=== PATIENT | female | born 1980 | race African-American/Black ===

== ENCOUNTER 2024-04-18 12:00 | Inpatient (IN) | payer BC ==
[2024-04-23 13:35] LABS: Hematocrit 33.4 % (34.9-44.5); Hemoglobin 10.9 g/dL (12.0-15.5); Platelet Count 178 10x3/uL (150-450)
[2024-04-23 14:02] LABS: Syphilis Antibody Nonreactive (Nonreactive); Syphilis Antibody Index 0.03 S/CO (<1.00 Non-Reactive)
[2024-04-23 14:04] LABS: HBsAg Index 0.17 S/CO (0-0.99); Hep B Surf Ag Non-Reactive S/CO (NonReactive)
[2024-04-24 10:42] VITALS: BMI 30.7
[2024-04-24] MEDS ORDERED: Promethazine HCl 25 MG/ML VIAL IM PRN ×3 (10:59→14:47)
[2024-04-24] MEDS ORDERED: Acetaminophen 500 MG TAB PO PRN (10:59)
[2024-04-24] MEDS ORDERED: Ondansetron PF 4 MG/2 ML Vial IVP PRN ×4 (10:59→14:47)
[2024-04-24] MEDS ORDERED: hydrALAZINE 20 MG/ML VIAL SLOW IVP PRN ×2 (10:59→14:47)
[2024-04-24] MEDS ORDERED: Famotidine/PF 20 mg/2ml Vial SLOW IVP PRN (10:59)
[2024-04-24] MEDS ORDERED: Bicitra 30 ML UDCUP PO PRN (10:59)
[2024-04-24] MEDS ORDERED: Methylergonovine 0.2 MG/ML VIAL IM PRN (10:59)
[2024-04-24] MEDS ORDERED: Diphenoxylate HCl/Atropine Tablet PO PRN (10:59)
[2024-04-24] MEDS ORDERED: Carboprost 250 MCG/ML AMP IM PRN (10:59)
[2024-04-24] MEDS ORDERED: Misoprostol 200 MCG TAB PR PRN (10:59)
[2024-04-24] MEDS ORDERED: fentaNYL 50 mcg/mL 1 mL Vial SLOW IVP PRN ×2 (10:59→13:16)
[2024-04-24] MEDS ORDERED: Lactated Ringer's 1,000 ML IV SCH (11:00)
[2024-04-24] MEDS ORDERED: CEFAZOLIN 2 GM in Sodium Chloride 0.9% 100 ML IVPB SCH (11:00)
[2024-04-24] MEDS ORDERED: Oxytocin 30 units/NS 500 ML 500 ML IV SCH (11:00)
[2024-04-24] MEDS ORDERED: Meperidine HCl/PF 25 MG (1 mL) VIAL SLOW IVP PRN (13:16)
[2024-04-24] MEDS ORDERED: HYDROmorphone 0.5 MG/0.5 ML SYRINGE SLOW IVP PRN (13:16)
[2024-04-24] MEDS ORDERED: Moisturizing Cream (Eucerin) 113 GM JAR TOP PRN (13:16)
[2024-04-24] MEDS ORDERED: Naloxone HCl 0.4 mg/ml Vial IVP PRN ×2 (13:16)
[2024-04-24] MEDS ORDERED: Naloxone HCl 0.4 mg/ml Vial IV PRN (13:16)
[2024-04-24] MEDS ORDERED: diphenhydrAMINE 50 MG/ML VIAL IVP PRN (13:16)
[2024-04-24] MEDS ORDERED: Communication Order-Pharmacy FS SCH (13:30)
[2024-04-24] MEDS ORDERED: Ketorolac Tromethamine 30 MG (1 mL) VIAL IVP SCH (13:30)
[2024-04-24] MEDS ORDERED: Lanolin Ointment 7 GM TUBE TOP PRN (14:47)
[2024-04-24] MEDS ORDERED: Bisacodyl 10 MG SUPP PR PRN (14:47)
[2024-04-24] MEDS ORDERED: Boostrix 0.5 ML (Tdap) VIAL (>/=7 yrs of age) IM ONE (14:47)
[2024-04-24] MEDS ORDERED: diphenhydrAMINE 25 MG CAP PO PRN (14:47)
[2024-04-24] MEDS ORDERED: Acetaminophen 325 MG TAB PO PRN (14:47)
[2024-04-24] MEDS: Tranexamic Acid 1,000 MG/10 ML VIAL ONE (20:38)
[2024-04-24] MEDS: Methylergonovine 0.2 MG/ML VIAL ONE (20:38)
[2024-04-24] MEDS: Famotidine/PF 20 mg/2ml Vial ONE (20:38)
[2024-04-24] MEDS: Carboprost 250 MCG/ML AMP ONE (20:38)
[2024-04-24] MEDS: CEFAZOLIN 2 GM VIAL ONE (20:38)
[2024-04-24] MEDS: fentaNYL 50 mcg/mL 1 mL Vial ONE (20:39)
[2024-04-24] MEDS: Oxytocin 10 UNITS/ML VIAL ONE ×2 (20:39)
[2024-04-24] MEDS: Morphine PF 10 MG/10 ML VIAL ONE (20:39)
[2024-04-24] MEDS: Ondansetron PF 4 MG/2 ML Vial ONE (20:39)
[2024-04-24] MEDS: Ferrous Sulfate 325 MG TAB PO SCH (20:40)
[2024-04-24] MEDS: Docusate 100 MG CAP PO SCH (20:40)
[2024-04-25] MEDS ORDERED: HYDROcodone/Acetaminophen 5/325 mg Tablet PO PRN ×2 (01:30)
[2024-04-25 03:35] LABS: Hematocrit 32.6 % (34.9-44.5); Hemoglobin 11.1 g/dL (12.0-15.5); Mean Corpuscular Hemoglobin 32.6 pg (27.0-33.0); Mean Corpuscular Volume 95.6 fL (81.6-98.3); Mean Platelet Volume 10.6 fL (7.4-10.4); Platelet Count 159 10x3/uL (150-450); RBC Distribution Width 14.9 % (11.5-14.5); Red Blood Cell (RBC) Count 3.41 10x6/uL (3.90-5.03); White Blood Cell (WBC) Count 5.4 10x3/uL (3.5-10.5)
[2024-04-25] MEDS: Ketorolac Tromethamine 30 MG (1 mL) VIAL IVP PRN (03:41)
[2024-04-25] MEDS: Prenatal Vitamin 1 TAB PO SCH (08:59)
[2024-04-25] MEDS: Ibuprofen 800 MG TAB PO SCH (14:09)
[2024-04-25] MEDS: Simethicone Chewable 80 MG TAB PO PRN (21:08)
[2024-04-26 08:00] VITALS: TEMP 97.4
[2024-04-26 11:44] VITALS: BP 94/60
== END 2024-04-26 14:40 | disposition home or self-care (01) | DRG 788 ==
LOC: CSHLD 04-24 10:05 → CSHPED 04-24 15:45
PROVIDERS: ADMIT Student in an Organized Health Care Education/Training Program; ATTEND Student in an Organized Health Care Education/Training Program
PROC: 10D00Z1 Extraction of Products of Conception, Low, Open Approach (ICD-10-PCS; principal; 2024-04-24)
DX: O34.211 Maternal care for low transverse scar from previous cesarean delivery (principal); Z3A.37 37 weeks gestation of pregnancy; Z37.0 Single live birth
CPT/HCPCS: 36415; 51702; 85014; 85018; 85027; 85049; 86780; 86850; 86900; 86901; 87340; J1885; J2274; J2405; J2590; J3010; S0028